=== PATIENT | female | born 2005 | race Caucasian/White ===

== ENCOUNTER 2023-01-29 13:43 | Emergency (ER) | payer SELFPAY ==
[2023-01-29] MEDS ORDERED: Metoclopramide 10 MG/2 ML SDV IVPUSH ONE (15:10)
[2023-01-29] MEDS ORDERED: Ketorolac 30 MG/ML SDV IVPUSH ONE (15:10)
[2023-01-29] MEDS ORDERED: Sodium Chloride 0.9% 1,000 ML IV ONE (15:10)
== END 2023-01-29 17:05 | disposition home or self-care (01) ==
LOC: MW.ED 13:43
DX: G43.909 Migraine, unspecified, not intractable, without status migrainosus (principal); J45.909 Unspecified asthma, uncomplicated
CPT/HCPCS: 96361; 96374; 96375; 99283; J1885; J2765; J7030

== ENCOUNTER 2023-11-26 13:50 | Emergency (ER) | payer MEDICAID ==
[2023-11-26 14:46] LABS: BASOPHILS ABSOLUTE AUTO 0.03 K/uL (0.00-0.30); BASOPHILS PERCENT AUTO 0.5 % (0.0-1.0); EOSINOPHILS ABSOLUTE AUTO 0.01 K/uL (0.00-0.70); EOSINOPHILS PERCENT AUTO 0.2 % (0.0-5.0); HEMATOCRIT 37.9 % (37.0-47.0); HEMOGLOBIN 12.7 g/dL (12.0-16.0); IMMATURE GRAN ABSOLUTE AUTO 0.01 K/uL (0.00-0.05); IMMATURE GRAN PERCENT AUTO 0.2 % (0.0-0.4); LYMPHOCYTES ABSOLUTE AUTO 2.06 K/uL (2.00-8.80); LYMPHOCYTES PERCENT AUTO 33.8 % (50.0-65.0); MEAN CORPUSCULAR HEMOGLOBIN 28.2 pg (28.0-32.0); MEAN CORPUSCULAR HGB CONC 33.5 g/dL (32.0-36.0); MEAN CORPUSCULAR VOLUME 84.2 fL (83.0-99.0); MEAN PLATELET VOLUME 9.8 fL (9.4-12.3); MONOCYTES ABSOLUTE AUTO 0.44 K/uL (0.10-1.40); MONOCYTES PERCENT AUTO 7.2 % (2.0-10.0); NEUTROPHILS ABSOLUTE AUTO 3.54 K/uL (1.50-8.50); NEUTROPHILS PERCENT AUTO 58.1 % (35.0-45.0); PLATELET COUNT,PLT 234 K/uL (150-400); WHITE BLOOD CELL COUNT,WBC 6.09 K/uL (4.5-13.5)
[2023-11-26 15:20] LABS: A/G RATIO 1.2 (0.9-1.6); ALBUMIN 4.1 g/dL (3.4-5.0); BILIRUBIN TOTAL 0.3 mg/dL (0.2-1.0); CALCIUM 9.2 mg/dL (8.5-10.1); CARBON DIOXIDE,CO2 27.7 mmol/L (21.0-32.0); CREATININE 0.9 mg/dL (0.6-1.0); EST CRCL DRUG DOSING (CG) 94.12 mL/min; POTASSIUM,K 4.2 mmol/L (3.5-5.1); PROTEIN TOTAL,TP 7.4 g/dL (6.4-8.2)
[2023-11-26] MEDS: traMADol 50 MG Tab PO ONE (15:57)
[2023-11-26 16:23] LABS: BILIRUBIN,URINE NEGATIVE (NEGATIVE); COLOR,URINE YELLOW; GLUCOSE,URINE NEGATIVE (NEGATIVE); KETONES,URINE NEGATIVE (NEGATIVE); LEUKOCYTE ESTERASE,URINE NEGATIVE (NEGATIVE); NITRITE,URINE NEGATIVE (NEGATIVE); OCCULT BLOOD,URINE TRACE-INTACT (NEGATIVE); PROTEIN,URINE NEGATIVE (NEGATIVE); UROBILINOGEN,URINE 0.2 EU/dL (<2.0)
[2023-11-26 16:25] LABS: APPEARANCE,URINE SLT CLOUDY
[2023-11-26 16:38] LABS: BACTERIA,URINE FEW (NEGATIVE); EPITHELIAL CELLS,URINE FEW (NONE-FEW); MUCUS,URINE LIGHT (NONE-MOD); RBC,URINE 0-2 (0-2/HPF); WBC,URINE 0-2 (0-5/HPF)
== END 2023-11-26 18:19 | disposition home or self-care (01) ==
LOC: MW.ED 13:50
DX: M54.50 Low back pain, unspecified (principal); J45.909 Unspecified asthma, uncomplicated
CPT/HCPCS: 36415; 72131; 80053; 81001; 81025; 85025; 99284; A9270; 99283

== ENCOUNTER 2023-11-27 18:04 | Emergency (ER) | payer MEDICAID | END 2023-11-27 18:45 | disposition left against medical advice (07) | LOC: MW.ED 18:04 | DX: Z53.21 Procedure and treatment not carried out due to patient leaving prior to being seen by health care provider (principal) ==